=== PATIENT | male | born 1975 | race African-American/Black ===

== ENCOUNTER 2022-02-22 20:40 | Emergency (ER) | payer SELFPAY ==
[~2022-02-22] VITALS: Ht 182.9 cm; Wt 135.5 kg
[2022-02-22] MEDS ORDERED: IBUPROFEN 400 MG TABLET. PO ONE (22:00)
--- NOTE | 2022-02-22 23:10 | RAD ---
KNEE 4 VIEWS right Clinical Indication: Reason: fall two days ago on wet porch / Spl. Instructions: / History: Comparison: None. Findings: There is no acute fracture or dislocation. There is mild narrowing of the medial and patellofemoral c ompartments. There are tricompartmental marginal osteophytes. Mineralization appears normal. The melton lla is in anatomic position. There are tiny patellar enthesophytes. There is no soft tissue abnormali ty. There is moderate joint effusion. IMPRESSION: 1. No acute fracture. 2. Moderate joint effusion. Electronically signed by: Joselo Honeycutt MD (02/22/2022 11:08 PM) [facility]
--- NOTE | 2022-02-22 23:18 | RAD ---
Right FOOT AP LATERAL OBLIQUE Clinical Indication: Reason: fall two days ago on wet porch /, pain. Comparison: None. Findings: There is no acute fracture or dislocation. The bony alignment is normal. Mineralization is normal. N o bony erosion. There are moderate calcaneal bone spurs. There are small dorsal osteophytes of the midfoot. There is no soft tissue abnormality. IMPRESSION: No acute fracture. Electronically signed by: Joselo Honeycutt MD (02/22/2022 11:16 PM) [facility]
[2022-02-22] MEDS ORDERED: IBUP-1060 PO (23:46)
--- NOTE | 2022-02-22 23:46 | PHYS DOC ---
Past Medical History Past Medical History: No Pertinent History Past Surgical History: No Surgical History General Adult EDM: Chief Complaint: LOWEREXTREMITY INJURY HPI: HPI: Patient is a 46 year old male who presents with two day history of right knee and right ankle pain. Patient states that on one of the rainy days, patient slipped on his wet porch. He reports right knee pain and right ankle pain since that time. 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 He reports associated swelling of his knee and lateral ankle. Patient has no other injuries or pain. He denies other complaints at this time. Review of Systems: Review of Systems: Constitutional: Denies fever, chills or generalized weakness Eyes: Denies change in visual acuity, visual field deficits or discharge HENT: Denies ear pain, nasal congestion or sore throat Respiratory: Denies cough or shortness of breath Cardiovascular: Denies chest pain, palpitations or edema GI: Denies abdominal pain, nausea, vomiting, bloody stools or diarrhea : Denies dysuria or hematuria Musculoskeletal: See HPI Integument: Denies rash or other skin lesion Neurologic: Denies headache, focal weakness or sensory changes Heart Score: C/O Chest Pain: No Current Medications: Current Medications Medications (Trade) Dose Ordered Sig/Shayna Start Time Stop Time Status Last Admin Dose Admin Ibuprofen (Motrin) 800 mg 1X ONCE 02/22/22 22:00 02/22/22 22:01 DC 02/22/22 21:58 800 MG Allergies: Allergies: Allergies Coded Allergies Type Severity Reaction Last Updated Verified No Known Drug Allergies 02/22/22 No Physical Exam: PE: Constitutional: Overweight, no acute distress, non-toxic appearance. HENT: Normocephalic, atraumatic, bilateral external ears normal. Eyes: EOMI, conjunctiva normal, no discharge. Neck: Normal range of motion, no stridor. Thorax: Equal thoracic expansion, no increased work of breathing. Skin: Warm, dry, no erythema, no rash. Back: No stepoff, no tenderness. Extremities: Right knee swelling with tenderness, right ankle with lateral malleolar swelling, no bony tenderness, distal capillary refill <2 seconds. Neurologic: Alert and oriented x4, normal motor function, normal sensory function, no focal deficits noted. Current Patient Data: Vital Signs: Vital Signs Date Time Temp Pulse Resp B/P (MAP) Pulse Ox O2 Delivery O2 Flow Rate FiO2 02/23/22 00:01 88 18 200/106 (137) 97 02/22/22 21:00 98.3 76 18 194/100 (131) 96 Room Air 98.3 Radiology/Procedures: Radiology/Procedures: PROCEDURE: KNEE RIGHT 4V KNEE 4 VIEWS right Clinical Indication: Reason: fall two days ago on wet porch / Spl. Instructions: / History: Comparison: None. Findings: There is no acute fracture or dislocation. There is mild narrowing of the medial and patellofemoral compartments. There are tricompartmental marginal osteophy lamont. Mineralization appears normal. The patella is in anatomic position. There are tiny patellar enthesophytes. There is no soft tissue abnormality. There is moderate joint effusion. IMPRESSION: 1. No acute fracture. 2. Moderate joint effusion. Electronically signed by: Joselo Honeycutt MD (02/22/2022 11:08 PM) [facility] Course & Med Decision Making: Course & Med Decision Making Pertinent Labs and Imaging studies reviewed. (See chart for details) On triage, patient's blood pressure was found to be acutely elevated. Patient is entirely asymptomatic. Both FAIZAN Blair and myself had lengthy discussions w ith the patient regarding elevated high blood pressure and the risks of leaving it uncontrolled long-term. Patient verbalized understanding and requests information regarding establishing primary care. X-rays do not reveal any acute bony abnormalities. Patient was placed in an Javier wrap on his knee and in a stirrup splint on the ankle. Patient is advised to follow with orthopedic should his symptoms not improve. Patient could ambulate comfortably after these were in place. Return precautions are provided. Patient understands and is agreeable to discharge plan. Dragon Disclaimer: Dragon Disclaimer: This electronic medical record was generated, in whole or in part, using a voice recognition dictation system. Departure Departure Impression: Primary Impression: Effusion of right knee joint Additional Impressions: Sprain of unspecified ligament of right ankle, initial encounter Elevated blood pressure reading without diagnosis of hypertension Disposition: HOME / SELF CARE / HOMELESS Condition: IMPROVED Referrals: NO PCP (PCP) ML BAIRD II, MD Patient Instructions: Ankle Sprain, [id number], How to Take Your Blood Pressure, [id number], Knee Effusion, [id number], RICE - Routine Care for Injuries, [id number] Additional Instructions: EMERGENCY DEPARTMENT GENERAL DISCHARGE INSTRUCTIONS Thank you for coming to [facility] Emergency Department (ED) today and trusting us with you care. We trust that you had a positive experience in our Emergency Department. If you wish to speak to the department management, you may call the director at . YOUR FOLLOW UP INSTRUCTIONS ARE FOLLOWS: 1. Follow up with your primary care doctor. If you do not have a primary doctor, please ask for a resource list of physicians or clinics that may be able to assist you with follow up care. 2. The emergency provider has interpreted your imaging studies, if any were ordered. The radiology capital markets specialist also reviewed them. If there is a change in the findings, you will be notified in 48 hours when at all possible. 3. If a lab test or culture has been done, your results will be reviewed and you will be notified if you need a change in treatment. 4. Follow instructions verbalized to you and refer to the printouts if needed. ADDITIONAL INSTRUCTIONS AND INFORMATION: 1. Your care today has been supervised by a physician who is specially trained in emergency care. Many problems require more than one evaluation for a complete diagnosis and treatment. We recommend that you schedule your follow up appointment as recommended to ensure complete treatment of you illness or injury. If you are unable to obtain follow up care and continue to have a problem, or if your condition worsens, we recommend that you return to the ED. 2. We are not able to safely determine your condition over the phone nor are we able to give sound medical advice over the phone. For these safety reasons, if you call for medical advice we will ask you to come to the ED for further evaluation. 3. If you have any questions regarding these discharge instructions please call the ED at . SAFETY INFORMATION: In the interest of safety, wellness, and injury prevention; we encourage you to wear your seat belt, if you smoke; quite smoking, and we encourage family to use a protective helmet for bicycling and other sporting events that present an increased risk for head injury. IF YOUR SYMPTOMS WORSEN OR NEW SYMPTOMS DEVELOP, OR YOU HAVE CONCERNS ABOUT YOUR CONDITION; OR IF YOUR CONDITION WORSENS WHILE YOU ARE WAITING FOR YOUR FOLLOW UP APPOINTMENT; EITHER CONTACT YOUR PRIMARY CARE DOCTOR, THE PHYSICIAN WHOSE NAME AND NUMBER YOU WERE GIVEN, OR RETURN TO THE ED IMMEDIATELY. Scripts Ibuprofen (IBUPROFEN) 800 Mg Tablet 800 MG PO PRN Q6HRS PRN for INFLAMMATION, #30 TAB Prov: BRANDEE DAVIDSON 02/22/22 BRANDEE DAVIDSON February 22, 2022 23:46
[2022-02-23 00:01] VITALS: BP 200/106
== END 2022-02-23 00:05 | disposition home or self-care (01) ==
LOC: ER 20:40
DX: S93.401A Sprain of unspecified ligament of right ankle, initial encounter (principal); M25.561 Pain in right knee; R03.0 Elevated blood-pressure reading, without diagnosis of hypertension; X50.9XXA Other and unspecified overexertion or strenuous movements or postures, initial encounter; Y93.89 Activity, other specified; Y92.89 Other specified places as the place of occurrence of the external cause; Y99.8 Other external cause status
CPT/HCPCS: 29515; 73564; 73630; 99284